=== PATIENT | female | born 2000 ===

== ENCOUNTER 2025-03-21 19:37 | Emergency (ER) | payer BC ==
[~2025-03-21] VITALS: Ht 175.3 cm; Wt 59.4 kg
[2025-03-21 20:00] VITALS: BP 101/69
[2025-03-21] MEDS ORDERED: HYDR-3972 PO (20:47)
[2025-03-21 20:52] VITALS: BP 105/68; TEMP 98; O2SAT 98
== END 2025-03-21 20:52 | disposition home or self-care (01) ==
LOC: ER 20:14
DX: G89.29 Other chronic pain (principal); M54.6 Pain in thoracic spine
CPT/HCPCS: A4606; A4663